=== PATIENT | male | born 1950 | race Caucasian/White ===

== ENCOUNTER 2016-11-20 17:35 | Inpatient (IN) | payer OTHER ==
[~2016-11-20] VITALS: Ht 165.1 cm; Wt 74.8 kg
--- NOTE | ~2016-11-20 | EKG ---
[address] [place] [employer] [place] [address] ELECTROCARDIOGRAM REPORT Name: CARLOS PAL Room #: 204-P [facility] IN M.R.#: [id number] Admission: 11/20/16 Attend Phys: Sapna Giraldo Discharge: 11/21/16 Date of : 46 Report #: [id number] THIS REPORT FOR: //name// [facility] ED Test Date: 2016-11-20 Test Time: 18:43:49 Pat Name: CARLOS PAL Department: Room: [facility] Gender: M [employer] Sales: [id number] : 1950 Requested By: Genevieve Moran Order Number: [id number] MD: Sd Puckett Measurements Intervals [place] Rate: 72 P: 11 LA: 132 QRS: -9 QRSD: 95 T: 72 QT: 387 QTc: 424 Interpretive Statements Sinus rhythm Anteroseptal infarct, age indeterminate Compared to ECG 08/05/2015 14:54:05 No significant changes Electronically Signed On 11-21-2016 22:55:33 CDT by Sd Puckett [email or web address] <ELECTRONICALLY SIGNED> By: Sd Puckett MD 11/21/16 2255 1843 1843 Sd Puckett MD /[facility]
[~2016-11-20 17:35] MED LIST: ASPIRIN EC81 M1 PO; ASPIRIN81 M2 PO; CIPROFLOXACIN500 M1 PO; COLACE 100 MG100 MG PO; EXFORGE 10-1601 EACH; FLAGYL500 MG PO; LISINOPRIL5 MG; LOPRESSOR25 PO; NITROGLYCERIN0.4 MG SUBLING; PHENERGAN12.5 M1; PLAVIX 75 MG TA75 M1; PLAVIX 75 MG TA75 MG PO; RED YEAST RICE600 M1 PO; SENNA LAXATIVE25 MG PO; TOPROL XL25 MG; TRAMADOL 50 MG50 MG; TYLENOL325 MG PO; VICODIN 5-5001 EACH PO; ZETIA10 MG PO
[2016-11-20 17:36] VITALS: BP 161/94
[2016-11-20 18:31] LABS: ABSOLUTE NEUTROPHILS 3.5 thou/uL (1.4-8.2); BASOPHILS 0.7 % (0.0-2.0); EOSINOPHILS 0.7 % (0.0-3.0); HEMATOCRIT 46.9 % (42.0-52.0); HEMOGLOBIN 16.2 gm/dL (14.0-18.0); LYMPHOCYTES 32.7 % (24.0-44.0); MCHC 34.5 g/dL (28.0-37.0); MCV 98.7 fL (80.0-100.0); MONOCYTES 10.3 % (1.0-8.0); PLATELET COUNT 197 thou/uL (150-400); POLYS 55.6 % (36.0-66.0); RBC 4.75 mil/uL (4.50-6.00); RDW 13.2 % (10.5-14.5); WBC 6.2 thou/uL (4.0-11.0)
[2016-11-20 18:33] LABS: MANUAL DIFF NO
[2016-11-20] MEDS ORDERED: AMLODIPINE-VAL1 EAC2 PO (18:55)
[2016-11-20 19:25] LABS: PROTIME 10.4 Seconds (9.3-11.4)
[2016-11-20 19:36] LABS: ANION GAP 11 mmol/L (7-16); BUN 14 mg/dL (7-18); CHLORIDE 103 mmol/L (98-107); CO2 23 mmol/L (21-32); CREATININE 0.9 mg/dL (0.7-1.3); GLUCOSE 109 mg/dL (74-106); POTASSIUM 4.2 mmol/L (3.5-5.1); SODIUM 137 mmol/L (136-145)
[2016-11-20 19:46] LABS: ALKALINE PHOSPHATASE 64 U/L (46-116); CHOLESTEROL 251 mg/dL (<200); HDL CHOLESTEROL 61 mg/dL (>40); LDL CHOLESTEROL 141 mg/dL (<100); NT-PRO BRAIN NAT PEPTIDE 67 pg/mL (<300); SGOT 54 U/L (15-37); SGPT 97 U/L (30-65); TC:HDL 4.1 Ratio (Not establshd); TOTAL BILIRUBIN 0.5 mg/dL (<0.1-1.0); TOTAL PROTEIN 7.6 g/dL (6.4-8.2); TRIGLYCERIDE 248 mg/dL (<150); TROPONIN-I < 0.04 ng/mL (<0.04-0.07); VLDL 50 mg/dL (<40)
[2016-11-20 20:06] VITALS: BP 177/403
[2016-11-21 00:44] VITALS: BP 144/87
[2016-11-21 02:59] LABS: HEMATOCRIT 42.9 % (42.0-52.0); HEMOGLOBIN 14.9 gm/dL (14.0-18.0); MCH 33.9 pg (26.0-34.0); MCHC 34.7 g/dL (28.0-37.0); MCV 97.8 fL (80.0-100.0); RBC 4.38 mil/uL (4.50-6.00); RDW 13.4 % (10.5-14.5); WBC 6.7 thou/uL (4.0-11.0)
[2016-11-21 03:14] LABS: ALBUMIN 3.5 g/dL (3.4-5.0); CALCIUM 8.7 mg/dL (8.5-10.1); POTASSIUM 3.8 mmol/L (3.5-5.1); TOTAL BILIRUBIN 0.5 mg/dL (<0.1-1.0); TOTAL PROTEIN 6.9 g/dL (6.4-8.2)
[2016-11-21 04:00] VITALS: BP 148/87
[2016-11-21 07:56] VITALS: BP 136/86
[2016-11-21 11:29] LABS: FOLIC ACID 8.4 ng/mL (8.6-58.9)
[2016-11-21 12:25] VITALS: BP 137/84
[2016-11-21] MEDS ORDERED: ATORVASTATIN CA40 MG PO (16:17)
[2016-11-21 16:27] VITALS: BP 137/84
[2016-11-21 17:21] VITALS: BP 137/84
[2016-11-22 00:05] LABS: GLYCOHEMOGLOBIN (HGB A1C) 4.8 % (4.8-5.6)
[2016-11-25 18:06] LABS: ALPHA TOCOPHEROL 12.3 mg/L (5.3-17.5)
== END 2016-11-21 17:30 | disposition home or self-care (01) | DRG 69 ==
LOC: ER 17:35 → 2N 19:04 → EROBS 19:04 → 2N 20:07
PROVIDERS: Nurse Practitioner Family; Psychiatry & Neurology Neurology
DX: G45.9 Transient cerebral ischemic attack, unspecified (principal); I10 Essential (primary) hypertension; E78.5 Hyperlipidemia, unspecified; R60.9 Edema, unspecified; I25.10 Atherosclerotic heart disease of native coronary artery without angina pectoris; I25.2 Old myocardial infarction; Z95.5 Presence of coronary angioplasty implant and graft; Z90.49 Acquired absence of other specified parts of digestive tract; Z88.8 Allergy status to other drugs, medicaments and biological substances; Z87.891 Personal history of nicotine dependence; Z79.02 Long term (current) use of antithrombotics/antiplatelets; Z79.82 Long term (current) use of aspirin; Z79.899 Other long term (current) drug therapy
CPT/HCPCS: 10081

== ENCOUNTER 2017-01-25 18:16 | Inpatient (IN) | payer OTHER ==
[~2017-01-25] VITALS: Ht 167.6 cm; Wt 84.3 kg
--- NOTE | ~2017-01-25 | D ---
[facility] [place] [address] DISCHARGE SUMMARY Name: CARLOS PAL Room #: 219-P ADM IN M.R.#: [id number] Admission: 01/25/17 Attend Phys: Bautista Lyons DO Discharge: Date of : 46 Report #: [id number] THIS REPORT FOR: //name// CC: Bautista Lyons Amor Katherine DATE OF SERVICE: 01/27/2017 HISTORY OF PRESENT ILLNESS: The patient is a 66-year-old man who came to the hospital with dizzy spells. Please refer to the admission H and P for details. In brief, the patient had very similar presentation in November. At that time, TIA was suspected, but diagnosis was not entirely clear. The patient came in with a similar symptoms. He experienced dizziness, also epigastric pain, nausea, hot flashes, and as he describes . Episodes are lasting somewhere from 10-45 minutes, and goes away spontaneously. HOSPITALIZATION COURSE: The patient was hospitalized here. Again, TIA was one of the differential diagnosis. The patient was seen by neurologist again at this time. He had MRI of the brain, that showed no acute findings. The patient has chronic microvascular disease, that is not changed since the MRI in November of this year. The patient also had EEG, that was unremarkable. The patient's symptoms are not entirely explained. Because the patient had GI symptomatology, GI doctor was also consulted. The patient was recommended to have 24-hour urine collection for 5-HIAA to screen for neuroendocrine tumor. For the patient's memory problems slightly, neuropsychologic testing was recommended, that will be set up as an outpatient. The patient had one brief episode of dizziness while he was here in last 2 days, but today he has been completely asymptomatic. The patient will be discharged home today, an outpatient workup will be continued. DISCHARGE DIAGNOSES: 1. Dizzy spells, recurrent problem as detailed above. Etiology is unclear. Again, transient ischemic attack is unlikely, the patient does not have a stroke, and EEG was unremarkable. The patient will have 5-HIAA levels done to evaluate for neuroendocrine tumor, because the patient also has abdominal pain and flashing during the episodes. 2. Hypertension. 3. Congestive heart failure, ejection fraction 45% based on echo done during this admission. Bubble study is negative. 4. Chronic neck pain. 5. History of peptic ulcer disease. 6. History of transient ischemic attack. [facility] [address] [place] [address] DISCHARGE SUMMARY Name: CARLOS PAL Room #: 219-P [facility] IN M.R.#: [id number] Admission: 01/25/17 Attend Phys: Bautista Lyons DO Discharge: Date of : 46 Report #: [id number] DISCHARGE MEDICATIONS: Same as admission medications, please refer to the medication reconciliation list. DISPOSITION: The patient is discharged home. FOLLOWUP PLAN: 1. Follow up with primary care physician in 1-2 weeks. 2. Follow up with the neurologist for neuropsychologic testing, as well as follow up with a GI specialist as advised. I spent more than 30 minutes to coordinate the patient's discharge from the hospital. By: 1557 [id number] Stevie Gotti MD /nt
--- NOTE | ~2017-01-25 | EKG ---
[address] [place] [address] ELECTROCARDIOGRAM REPORT Name: CARLOS PAL Room #: 219-P ADM IN M.R.#: [id number] Admission: 01/25/17 Attend Phys: Bautista Lyons DO Discharge: Date of : 46 Report #: [id number] THIS REPORT FOR: //name// [facility] ED Test Date: 2017-01-25 Test Time: 18:40:47 Pat Name: CARLOS PAL Department: Room: 219 Gender: M Credit Clerk: [id number] : 1950 Requested By: Kahlil Maynard Order Number: [id number] MD: Jesse Sharif Measurements Intervals [place] Rate: 67 P: 11 [place]: 150 QRS: 16 QRSD: 101 T: 90 QT: 404 QTc: 427 Interpretive Statements Sinus rhythm Anteroseptal infarct, age indeterminate Compared to ECG 11/20/2016 18:43:49 No significant changes Electronically Signed On 01-26-2017 9:00:04 CDT by Jesse Sharif [email or web address] <ELECTRONICALLY SIGNED> By: Jesse Sharif MD, [facility] 01/26/17 09 184 1840 Jesse Sharif MD, [facility] /EPI
--- NOTE | ~2017-01-25 | HC ---
[facility] [place] [address] CONSULTATION Name: CARLOS PAL Room #: 219-P [facility] IN M.R.#: [id number] Admission: 01/25/17 Attend Phys: Bautista Lyons DO Discharge: 01/27/17 Date of : 46 Report #: [id number] THIS REPORT FOR: //name// CC: Bautista Rileymen DO Amor Murphy DATE OF SERVICE: 01/27/2017 HISTORY OF PRESENT ILLNESS: The patient is a 66-year-old male who reports intermittent episodes of dizziness associated with confusion and feeling poor in general. He also has nausea associated with it and feels hot. These episodes can last 10 minutes or up to 30 minutes in general. First episode happened approximately a month and a half ago. He then began treating himself with some herbal medication and for 44 days, did not have any recurrent episodes; however, began having recurrent episodes several weeks ago. 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 Neurology is following at this time. He had already been on aspirin and Plavix. He denies any diarrhea with these episodes or diarrhea in general. Last colonoscopy was 5 years ago, reportedly benign polyps removed. He denies any abdominal pain. During these episodes, he does have some nausea, but no emesis. His weight has been stable. He has heartburn at times. Denies any dysphagia or odynophagia. PAST MEDICAL HISTORY: History of coronary artery disease, history of OK, chronic neck pain, previous history of peptic ulcer disease, hypertension, appendectomy, CVA on MRI changes. MEDICATIONS ON ADMISSION: Aspirin, Plavix, nitroglycerin, red yeast rice, Norflex, Ultram, EDTA, amlodipine, valsartan. ALLERGIES: NSAIDs CAUSING PEPTIC ULCER DISEASE. FAMILY HISTORY: Negative for colon cancer. SOCIAL HISTORY: He does smoke a few cigarettes per day. Alcohol 3-4 on a daily basis. PHYSICAL EXAMINATION: VITAL SIGNS: Temperature is 98.0, pulse 62, blood pressure 134/86, respiratory rate is 16. GENERAL: He is not alert and oriented x 3, in no acute distress. HEENT: Sclerae nonicteric. Oropharynx clear. NECK: Supple, without lymphadenopathy. CARDIOVASCULAR: Regular rate and rhythm. [facility] [address] [place] [address] CONSULTATION Name: CARLOS PAL Room #: 219-P [facility] IN M.R.#: [id number] Admission: 01/25/17 Attend Phys: Bautista Lyons, DO Discharge: 01/27/17 Date of : 46 Report #: [id number] CHEST: Clear to auscultation bilaterally. ABDOMEN: Soft, nontender, nondistended, normoactive bowel sounds. EXTREMITIES: No cyanosis, clubbing or edema. LABORATORY DATA: Sodium 139, potassium 4.4, chloride 103, bicarb 26, BUN 12, creatinine 1.0, AST 66, total bili 0.6, alk phos 53, ALT is 104, total protein 7.7, albumin 4.0. WBC 7.6, hemoglobin 14.9, platelet count is 196. ASSESSMENT AND PLAN: 1. Episodes of dizziness, lightheadedness and confusion, etiology unclear. It is associated with nausea and feeling of being hot. I would recommend ruling out the possibility of carcinoid syndrome; however, he does not have any diarrhea, which is usually associated with this. The plan is for a 24-hour urine 5-HIAA evaluation. This could be done as an outpatient. If this is negative and the patient has continued symptoms, could consider an upper endoscopy. He does have a previous history of peptic ulcer disease; however, it appears this was due to nonsteroidal antiinflammatory drugs. 2. Mildly elevated liver function test, specifically AST, ALT. This may be secondary to alcohol. Would monitor as an outpatient, consider an ultrasound of the abdomen as well. Thank you for allowing me to participate in his care. <ELECTRONICALLY SIGNED> By: Dyllan Amanda MD 01/28/17 1102 1204 39 Dyllan Amanda MD /nt
--- NOTE | ~2017-01-25 | 2DMMODE ---
[facility] [place] [place] [address] 2 D/M-MODE ECHOCARDIOGRAM Name: CARLOS PAL CORREA Room #: 219-P ADM IN M.R.#: [id number] Admission: 01/25/17 Attend Phys: Bautista Lyons, Discharge: Date of : 46 Date of Service: 01/27/17 1436 Report #: [id number] THIS REPORT FOR: //name// APPROVED REPORT Study performed: 01/27/2017 09:43:44 EXAM: Comprehensive 2D, Doppler, and color-flow Echocardiogram Patient Location: Bedside Room #: 219 Status: on-call BSA: 1.91 HR: 62 bpm BP: 134/86 mmHg Rhythm: NSR Other Information Study Quality: Good Risk Factors: Cardiac Risk Factors: HTN, ETOH Indications CVA/TIA Dizziness and Vertigo CAD Echo Enhancing Agent Agent(s) / Amount(s) Used: Agitated Saline cc 2D Dimensions IVSd: 11.29 (7-11mm) LVOT Diam: 19.00 (18-24mm) LVDd: 45.35 mm PWd: 10.66 (7-11mm) Ascending Ao: 29.10 (22-36mm) LVDs: 30.04 (25-40mm) Aortic Root: 29.24 mm Volumes Left Atrial Volume (Systole) Single Plane 4CH: 39.22 mL Single Plane 2CH: 37.22 mL LA ESV Index: 23.00 mL/m2 Aortic Valve AoV Peak Ruiz.: 1.31 m/s AO Peak Gr.: 7.32 mmHg LVOT Max P.47 mmHg [facility] [address] [place] [address] 2 D/M-MODE ECHOCARDIOGRAM Name: CARLOS PAL Room #: 219-P [facility] IN .R.#: [id number] Admission: 01/25/17 Attend Phys: Bautista Lyons, Discharge: Date of : 46 Date of Service: 01/27/17 1436 Report #: [id number] LVOT Max V: 0.93 m/s ANEESH Vmax: 2.08 cm2 Mitral Valve E/A Ratio: 1.1 MV Decel. Time: 235.65 ms MV E Max Ruiz.: 0.65 m/s MV A Ruiz.: 0.57 m/s MV PHT: 68.34 ms IVRT: 64.59 ms Pulmonary Valve PV Peak Ruiz.: 0.96 m/s PV Peak Gr.: 3.73 mmHg Pulmonary Vein P Vein S: 0.55 m/s P Vein A: 0.24 m/s P Vein D: 0.45 m/s P Vein A Dur.: 156.9 msec P Vein S/D Ratio: 1.22 Tricuspid Valve RAP Estimate: 7.00 mmHg Left Ventricle The left ventricle is normal size. Distal septum and apical hypokinesis.Distal anterior hypokinesis. Borderline concentric left ventricular hypertrophy. Left ventricular systolic function is normal. The left ventricular ejection fraction is within the normal range. not seen LVEF is 45%. Transmitral Doppler flow pattern suggests impaired LV relaxation. Right Ventricle The right ventricle is normal size. The right ventricular systolic function is normal. Atria The left atrium size is normal. Injection of bubbles documented no interatrial shunt. The right atrium size is normal. Aortic Valve The aortic valve is normal in structure. No aortic regurgitation is present. There is no aortic valvular stenosis. Mitral Valve The mitral valve is normal in structure. There is no mitral valve regurgitation noted. No evidence of mitral valve stenosis. [facility] [address] [place] [address] 2 D/M-MODE ECHOCARDIOGRAM Name: CARLOS PAL CORREA Room #: 219-P [facility] IN .R.#: [id number] Admission: 01/25/17 Attend Phys: Bautista Lyons, Discharge: Date of : 46 Date of Service: 01/27/17 1436 Report #: [id number] Tricuspid Valve The tricuspid valve is normal in structure. There is no tricuspid valve regurgitation noted. Pulmonic Valve The pulmonary valve is normal in structure. There is no pulmonic valvular regurgitation. Great Vessels The aortic root is normal in size. IVC is normal in size and collapses with >50% inspiration Pericardium There is no pericardial effusion. <Conclusion> LVEF is 45%. Distal septum and apical hypokinesis.Distal anterior hypokinesis. There is no pericardial effusion. Injection of bubbles documented no interatrial shunt. Thrombus not seen <ELECTRONICALLY SIGNED> By: Jamil Kenney MD, FACC 01/27/17 1436 1436 1436 Jamil Kenney MD, FACC /INF
[~2017-01-25 18:16] MED LIST changes: +AMLODIPINE-VAL1 EAC2 PO; +ATORVASTATIN CA40 MG PO
[2017-01-25 18:25] VITALS: BP 143/87
[2017-01-25] MEDS ORDERED: RED YEAST RICE600 MG PO (18:29)
[2017-01-25 18:52] LABS: ABSOLUTE NEUTROPHILS 5.4 thou/uL (1.4-8.2); BASOPHILS 0.7 % (0.0-2.0); EOSINOPHILS 0.7 % (0.0-3.0); HEMATOCRIT 43.2 % (42.0-52.0); HEMOGLOBIN 14.9 gm/dL (14.0-18.0); LYMPHOCYTES 19.4 % (24.0-44.0); MCH 33.8 pg (26.0-34.0); MCHC 34.4 g/dL (28.0-37.0); MCV 98.2 fL (80.0-100.0); MONOCYTES 7.9 % (1.0-8.0); PLATELET COUNT 196 thou/uL (150-400); POLYS 71.3 % (36.0-66.0); RDW 12.2 % (10.5-14.5); WBC 7.6 thou/uL (4.0-11.0)
[2017-01-25 19:01] LABS: MANUAL DIFF NO
[2017-01-25 19:03] LABS: ANION GAP 10 mmol/L (7-16); BUN 12 mg/dL (7-18); CALCIUM 9.6 mg/dL (8.5-10.1); CHLORIDE 103 mmol/L (98-107); CO2 26 mmol/L (21-32); GLUCOSE 131 mg/dL (74-106); POTASSIUM 4.4 mmol/L (3.5-5.1); SODIUM 139 mmol/L (136-145)
[2017-01-25 19:08] LABS: ALKALINE PHOSPHATASE 53 U/L (46-116); PROTIME 10.4 Seconds (9.3-11.4); SGOT 66 U/L (15-37); SGPT 104 U/L (30-65); TOTAL BILIRUBIN 0.6 mg/dL (<0.1-1.0); TOTAL PROTEIN 7.7 g/dL (6.4-8.2); TROPONIN-I < 0.04 ng/mL (<0.04-0.07)
[2017-01-25 21:31] LABS: URINE BILIRUBIN NEGATIVE (Negative); URINE BLOOD NEGATIVE (Negative); URINE COLOR YELLOW; URINE GLUCOSE-RANDOM* NEGATIVE (Negative); URINE KETONES NEGATIVE (Negative); URINE NITRITE NEGATIVE (Negative); URINE PROTEIN (DIPSTICK) NEGATIVE (Negative); URINE UROBILINOGEN 0.2 E.U./dl (0.2-1.0)
[2017-01-25 21:40] LABS: AMP/METHAMP Negative (Negative); BARBITURATES Negative (Negative); BENZODIAZEPINES Negative (Negative); COCAINE Negative (Negative); METHADONE Negative (Negative); OPIATES Negative (Negative); PCP Negative (Negative); THC Negative (Negative)
[2017-01-25 21:46] VITALS: BP 152/95
[2017-01-25 22:30] VITALS: BP 164/95
[2017-01-25] MEDS ORDERED: NORFLEX100 MG PO (23:12)
[2017-01-25] MEDS ORDERED: TRAMADOL 50 MG50 MG PO (23:13)
[2017-01-25] MEDS ORDERED: EDTA PO (23:16)
[2017-01-26 02:58] VITALS: BP 146/85
[2017-01-26 03:25] LABS: CHOLESTEROL 220 mg/dL (<200); HDL CHOLESTEROL 70 mg/dL (>40); LDL CHOLESTEROL 123 mg/dL (<100); MAGNESIUM 2.1 mg/dL (1.8-2.4); TC:HDL 3.1 Ratio (Not establshd); TRIGLYCERIDE 139 mg/dL (<150); VLDL 28 mg/dL (<40)
[2017-01-26 03:27] LABS: SERUM ASSESSMENT Clear
[2017-01-26 08:04] VITALS: BP 134/82
[2017-01-26 10:52] VITALS: BP 150/83
[2017-01-26 15:43] VITALS: BP 134/86
[2017-01-26 20:09] VITALS: BP 138/91
[2017-01-27 05:01] VITALS: BP 144/87
[2017-01-27 07:48] VITALS: BP 134/86
[2017-01-27 15:24] VITALS: BP 134/79
[2017-01-27 16:08] VITALS: BP 134/79
== END 2017-01-27 17:23 | disposition home or self-care (01) | DRG 948 ==
LOC: ER 18:16 → EROBS 20:13 → 2N 20:13
PROVIDERS: Nurse Practitioner Acute Care; Physician Assistant
DX: R41.82 Altered mental status, unspecified (principal); G89.29 Other chronic pain; M54.2 Cervicalgia; I25.10 Atherosclerotic heart disease of native coronary artery without angina pectoris; I50.9 Heart failure, unspecified; I11.0 Hypertensive heart disease with heart failure; E78.5 Hyperlipidemia, unspecified; I25.2 Old myocardial infarction; Z90.49 Acquired absence of other specified parts of digestive tract; Z79.1 Long term (current) use of non-steroidal anti-inflammatories (NSAID); Z87.11 Personal history of peptic ulcer disease; Z95.5 Presence of coronary angioplasty implant and graft; Z87.891 Personal history of nicotine dependence; Z79.82 Long term (current) use of aspirin; Z79.899 Other long term (current) drug therapy; Z82.49 Family history of ischemic heart disease and other diseases of the circulatory system; Z86.73 Personal history of transient ischemic attack (TIA), and cerebral infarction without residual deficits
CPT/HCPCS: 10081

== ENCOUNTER 2017-02-24 14:29 | Emergency (ER) | payer OTHER ==
[~2017-02-24] VITALS: Ht 167.6 cm; Wt 77.1 kg
[~2017-02-24 14:29] MED LIST changes: +EDTA PO; +NORFLEX100 MG PO; +RED YEAST RICE600 MG PO; +TRAMADOL 50 MG50 MG PO
== END 2017-02-24 16:20 | disposition home or self-care (01) ==
LOC: ER 14:29
DX: M54.5 Low back pain (principal); I10 Essential (primary) hypertension; Z86.73 Personal history of transient ischemic attack (TIA), and cerebral infarction without residual deficits; F10.10 Alcohol abuse, uncomplicated

== ENCOUNTER 2018-02-10 02:38 | Emergency (ER) | payer OTHER ==
[~2018-02-10] VITALS: Ht 165.1 cm; Wt 72.6 kg
== END 2018-02-10 10:25 | disposition home or self-care (01) ==
LOC: ER 02:38
DX: S00.83XA Contusion of other part of head, initial encounter (principal); F10.129 Alcohol abuse with intoxication, unspecified; G89.29 Other chronic pain; I10 Essential (primary) hypertension; Z86.73 Personal history of transient ischemic attack (TIA), and cerebral infarction without residual deficits; Z88.6 Allergy status to analgesic agent; X58.XXXA Exposure to other specified factors, initial encounter; Y93.89 Activity, other specified; Y92.89 Other specified places as the place of occurrence of the external cause; Y99.8 Other external cause status